=== PATIENT | male | born 1970 | race Caucasian/White ===

== ENCOUNTER 2018-08-09 12:51 | Inpatient (IN) | payer OTHER ==
[~2018-08-09] VITALS: Ht 175 cm; Wt 80.5 kg
--- NOTE | ~2018-08-09 | EKG ---
[place], [place] ELECTROCARDIOGRAM REPORT NAME: TERRANCE GÓMEZ UNIT #: [id number] ROOM: [facility] DOCTOR: EVANS DRAFT REPORT BIRTHDATE: [birth year] 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
--- NOTE | ~2018-08-09 | EKG ---
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
[2018-08-09 13:00] VITALS: BP 160/102; BP 160/104
[2018-08-09 14:01] LABS: BASO % 0.6 % (0.0-1.0); EOS % 0.4 % (1.0-4.0); HEMATOCRIT 33.6 % (42.0-52.0); HEMOGLOBIN 11.2 g/dl (14.0-18.0); LYMPH # 0.4 10*3/uL (1.3-4.4); LYMPH % 6.8 % (27.0-41.0); MEAN CELL VOLUME 95.7 fl (80.0-94.0); MEAN CORPUSCULAR HGB 31.9 pg (27.0-31.0); MEAN CORPUSCULAR HGB CONC 33.3 g/dl (33.0-37.0); MEAN PLATELET VOLUME 8.9 fl (9.6-12.3); MONO # 0.4 10*3/uL (0.1-1.0); MONO % 7.8 % (3.0-9.0); NEUT # 4.3 10*3/uL (2.3-7.9); PLATELET COUNT AUTOMATED 148 10*3/uL (130-400); RED BLOOD COUNT 3.51 10*6/uL (4.50-5.90); WHITE BLOOD COUNT 5.1 10*3/uL (4.8-10.8)
[2018-08-09 14:10] LABS: BILIRUBIN 2+ (NEGATIVE); BLOOD TRACE-INTACT (NEGATIVE); CLARITY SL CLOUDY (CLEAR); COLOR YELLOW (YELLOW); GLUCOSE TRACE (NEGATIVE); KETONE 1+ (NEGATIVE); LEUKO ESTERASE NEGATIVE (NEGATIVE); NITRITE POSITIVE (NEGATIVE); SPECIFIC GRAVITY >= 1.030 (1.005-1.030)
[2018-08-09 14:17] LABS: URINE AMPHETAMINES < 1000 (1000ng/ml); URINE BARBITURATES < 200 (200ng/ml); URINE BENZODIAZEPINES < 200 (200ng/ml); URINE CANNABINOIDS (THC) < 50 (50ng/ml); URINE COCAINE < 300 (300ng/ml); URINE METHADONE < 300 (300ng/ml); URINE OPIATES < 300 (300ng/ml)
[2018-08-09 14:17] LABS: ALBUMIN 3.6 gm/dl (3.1-4.5); ALKALINE PHOSPHATASE 119 U/L (45-117); BUN 9 mg/dl (7-24); CHLORIDE 96 mmol/L (98-107); CREATININE 0.81 mg/dL (0.70-1.30); POTASSIUM 3.4 mmol/L (3.5-5.1); SGOT/AST 139 IU/L (3-35); SGPT/ALT 76 U/L (12-78); SODIUM 135 mmol/L (136-145)
[2018-08-09 14:19] LABS: BACTERIA 2+; EPITHELIAL CELLS 0-2; MUCOUS 1+; RBC 0-2 rbc/hpf (0-2)
[2018-08-09 14:23] LABS: URINE PHENCYCLIDINE < 25 (25ng/ml)
[2018-08-09 17:43] VITALS: BP 152/72
[2018-08-09 18:04] LABS: TROPONIN I < 0.015 ng/ml (<0.045)
[2018-08-09 18:13] VITALS: BP 157/102
[2018-08-09 18:20] VITALS: BP 138/91
[2018-08-09 20:00] VITALS: BP 141/91
[2018-08-10] VITALS: BP 118/89
[2018-08-10 04:04] VITALS: BP 116/75
[2018-08-10 05:41] LABS: ALKALINE PHOSPHATASE 92 U/L (45-117); BUN 12 mg/dl (7-24); CHLORIDE 99 mmol/L (98-107); CREATININE 0.75 mg/dL (0.70-1.30); POTASSIUM 3.3 mmol/L (3.5-5.1); SGOT/AST 88 IU/L (3-35); SGPT/ALT 51 U/L (12-78); SODIUM 136 mmol/L (136-145); TOTAL PROTEIN 6.3 gm/dL (6.4-8.2)
[2018-08-10 06:17] LABS: BASO % 0.5 % (0.0-1.0); EOS # 0.1 10*3/uL (0.0-0.4); EOS % 2.7 % (1.0-4.0); LYMPH # 0.6 10*3/uL (1.3-4.4); LYMPH % 16.7 % (27.0-41.0); MEAN CELL VOLUME 96.8 fl (80.0-94.0); MEAN CORPUSCULAR HGB 31.8 pg (27.0-31.0); MEAN CORPUSCULAR HGB CONC 32.8 g/dl (33.0-37.0); MEAN PLATELET VOLUME 9.6 fl (9.6-12.3); MONO # 0.4 10*3/uL (0.1-1.0); MONO % 9.8 % (3.0-9.0); NEUT # 2.6 10*3/uL (2.3-7.9); NEUT % 69.5 % (47.0-73.0); RED CELL DISTRI WIDTH 16.1 % (0-14.5); WHITE BLOOD COUNT 3.8 10*3/uL (4.8-10.8)
[2018-08-10 06:19] LABS: HEMATOCRIT 27.1 % (42.0-52.0)
[2018-08-10 06:20] LABS: HEMOGLOBIN 8.9 g/dl (14.0-18.0); PLATELET COUNT AUTOMATED 117 10*3/uL (130-400)
[2018-08-10 08:00] VITALS: BP 116/80
[2018-08-10 12:00] VITALS: BP 111/76
[2018-08-10 16:00] VITALS: BP 118/79
[2018-08-10 20:00] VITALS: BP 102/59
[2018-08-11 04:00] VITALS: BP 110/71
[2018-08-11 05:06] LABS: BUN 8 mg/dl (7-24); CHLORIDE 104 mmol/L (98-107); CREATININE 0.77 mg/dL (0.70-1.30); POTASSIUM 3.6 mmol/L (3.5-5.1); SODIUM 136 mmol/L (136-145)
[2018-08-11 06:11] LABS: BASO % 0.5 % (0.0-1.0); EOS # 0.1 10*3/uL (0.0-0.4); EOS % 2.8 % (1.0-4.0); HEMATOCRIT 27.1 % (42.0-52.0); LYMPH # 0.6 10*3/uL (1.3-4.4); LYMPH % 16.2 % (27.0-41.0); MEAN CELL VOLUME 96.4 fl (80.0-94.0); MEAN CORPUSCULAR HGB CONC 33.2 g/dl (33.0-37.0); MEAN PLATELET VOLUME 9.6 fl (9.6-12.3); MONO # 0.4 10*3/uL (0.1-1.0); MONO % 9.5 % (3.0-9.0); NEUT # 2.7 10*3/uL (2.3-7.9); NEUT % 70.5 % (47.0-73.0); PLATELET COUNT AUTOMATED 129 10*3/uL (130-400); RED BLOOD COUNT 2.81 10*6/uL (4.50-5.90); RED CELL DISTRI WIDTH 16.1 % (0-14.5); WHITE BLOOD COUNT 3.9 10*3/uL (4.8-10.8)
[2018-08-11 08:00] VITALS: BP 138/90
[2018-08-11 12:00] VITALS: BP 119/71
[2018-08-11 16:00] VITALS: BP 111/66
[2018-08-11 20:00] VITALS: BP 121/80
[2018-08-12] VITALS: BP 125/79
[2018-08-12 04:00] VITALS: BP 122/66
[2018-08-12 08:00] VITALS: BP 108/65
[2018-08-12 12:00] VITALS: BP 121/82
[2018-08-12 16:00] VITALS: BP 119/77
[2018-08-12 20:00] VITALS: BP 126/82
[2018-08-13] VITALS: BP 151/90
[2018-08-13 04:00] VITALS: BP 130/80
[2018-08-13 08:00] VITALS: BP 138/90
[2018-08-13 12:00] VITALS: BP 149/98
[2018-08-13 16:00] VITALS: BP 168/93
[2018-08-13 20:00] VITALS: BP 103/56
[2018-08-14] VITALS: BP 112/76
[2018-08-14 04:00] VITALS: BP 112/70
[2018-08-14 06:16] LABS: BASO % 0.3 % (0.0-1.0); EOS # 0.1 10*3/uL (0.0-0.4); EOS % 1.3 % (1.0-4.0); HEMATOCRIT 30.3 % (42.0-52.0); LYMPH # 0.7 10*3/uL (1.3-4.4); LYMPH % 8.6 % (27.0-41.0); MEAN CELL VOLUME 96.8 fl (80.0-94.0); MEAN CORPUSCULAR HGB 31.9 pg (27.0-31.0); MEAN PLATELET VOLUME 9.1 fl (9.6-12.3); MONO # 0.9 10*3/uL (0.1-1.0); MONO % 10.8 % (3.0-9.0); NEUT # 6.8 10*3/uL (2.3-7.9); NEUT % 78.3 % (47.0-73.0); PLATELET COUNT AUTOMATED 202 10*3/uL (130-400); RED BLOOD COUNT 3.13 10*6/uL (4.50-5.90); RED CELL DISTRI WIDTH 17.7 % (0-14.5); WHITE BLOOD COUNT 8.7 10*3/uL (4.8-10.8)
[2018-08-14 06:40] LABS: CREATININE 0.88 mg/dL (0.70-1.30)
[2018-08-14 08:00] VITALS: BP 140/94
[2018-08-14 12:00] VITALS: BP 135/90
[2018-08-14 16:00] VITALS: BP 144/90
[2018-08-14 20:00] VITALS: BP 144/96
[2018-08-15] VITALS: BP 139/71
[2018-08-15 08:00] VITALS: BP 130/87
[2018-08-15] MEDS ORDERED: ATARAX,VISTARIL50 MG PO (10:00)
== END 2018-08-15 13:01 | disposition home or self-care (01) | DRG 897 ==
LOC: ICCU 12:51 → 5E 12:51 → ICCU 17:59 → 5E 08-14 13:43
PROVIDERS: Student in an Organized Health Care Education/Training Program
DX: F10.231 Alcohol dependence with withdrawal delirium (principal); E87.1 Hypo-osmolality and hyponatremia; D61.818 Other pancytopenia; D53.9 Nutritional anemia, unspecified; E87.6 Hypokalemia; E78.5 Hyperlipidemia, unspecified; E87.8 Other disorders of electrolyte and fluid balance, not elsewhere classified; R74.0 Nonspecific elevation of levels of transaminase and lactic acid dehydrogenase [LDH]; E80.6 Other disorders of bilirubin metabolism; N06.9 Isolated proteinuria with unspecified morphologic lesion; R82.4 Acetonuria; R31.21 Asymptomatic microscopic hematuria; R00.0 Tachycardia, unspecified; R03.0 Elevated blood-pressure reading, without diagnosis of hypertension; F32.9 Major depressive disorder, single episode, unspecified; Z72.0 Tobacco use; Z71.6 Tobacco abuse counseling; Z84.89 Family history of other specified conditions